=== PATIENT | male | born 1960 | race African-American/Black ===

== ENCOUNTER → 2020-06-08 | Outpatient (CLI) | payer SELFPAY ==
[~2020-06-08] MED LIST: NAPR-1071 PO; RT-ALBUTEROL SULF 2.5 MG/3 ML PRE-MIX VIAL INH ONE
== END ==
LOC: RT 15:18
PROVIDERS: ATTEND Nurse Practitioner Family
DX: J45.909 Unspecified asthma, uncomplicated (principal); F17.200 Nicotine dependence, unspecified, uncomplicated
CPT/HCPCS: 94060; 94726; 94729

== ENCOUNTER 2020-08-09 17:59 | Emergency (ER) | payer SELFPAY ==
[~2020-08-09] VITALS: Ht 162 cm; Wt 71.0 kg
[~2020-08-09 17:59] MED LIST changes: -RT-ALBUTEROL SULF 2.5 MG/3 ML PRE-MIX VIAL INH ONE
--- NOTE | 2020-08-09 18:05 | ED General ---
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--VERY HOT AND HUMID TODAY HAD SYNCOPAL EPISODE--BRIEF, WITNESSED BY CO-WORKERS NO INJURY PT WAS AWAKE, ALERT, LETHARGIC WHEN EMS ARRIVAL AT SCENE, AND PROFUSELY DIAPHORETIC PT STATES HE STARTED GETTING DIZZY AND SAT DOWN BEFORE HE PASSED OUT, DID NOT FALL OR INJURE HIMSELF IN ANY WAY HAS BEEN EATING AND DRINKING TODAY LAST VOID WAS A COUPLE OF HOURS AGO NO SYMPTOMS NOW, EXCEPT SOMEWHAT LETHARGIC NO CHEST PAIN NO PALPITATIONS NO SHORTNESS OF BREATH NO HEADACHE NO VISION CHANGES NO GI SYMPTOMS NO INCONTINENCE NO SEIZURE ACTIVITY NO HISTORY OF SIMILAR PT IS DIABETIC--ACCUCHECK 150 BY EMS VITALS ESSENTIALLY NORMAL FOR EMS NO FEVER OR RECENT ILLNESS PT HAD JOSELITO AND JOSELITO COVID-19 VACCINE PCP: SHANKAR Allergies and Home Medications Allergies Coded Allergies: No Known Drug Allergies (Unverified , 10/19/15) Home Medications Naproxen 500 Mg Tablet, 500 MG PO BID Prescribed by: APARNA HAWK on 10/19/15 5003 Patient Home Medication List Home Medication List Reviewed: Yes Review of Systems Review of Systems Constitutional: see HPI, diaphoresis, dizziness EENTM: no symptoms reported Respiratory: no symptoms reported Cardiovascular: No chest pain, No edema, No palpitations; syncope; No vascular heart diseas Gastrointestinal: no symptoms reported; No abdominal pain, No diarrhea, No nausea, No vomiting Genitourinary: no symptoms reported; No decreased output Musculoskeletal: no symptoms reported Skin: no symptoms reported Psychiatric/Neurological: See HPI; Denies Headache, Denies Numbness, Denies Paresthesia, Denies Seizure, Denies Tingling, Denies Weakness Hematologic/Lymphatic: No Symptoms Reported Immunological/Allergic: no symptoms reported Past Acsnuty-Lhfnel-Dywenk Hx Past Med/Social Hx: Reviewed and Corrections made Patient Social History Alcohol Use: Past History Drug of Choice: THC Smoking Status: Current Everyday Smoker (1 PPD) Type Used: Cigarettes Recent Hopitalizations: No Substance type: Marijuana Past Medical History Surgeries: Yes (BILATERAL ACHILLES TENDON REPAIRS) Orthopedic Respiratory: No Cardiac: Yes Hypertension Neurological: No Genitourinary: No Gastrointestinal: No Musculoskeletal: Yes (BILATERAL ACHILLES TENDON REPAIRS) Endocrine: Yes (ORAL MEDICATION) Diabetes, Non-Insulin dep HEENT: No Cancer: No Psychosocial: No Integumentary: No Blood Disorders: No Physical Exam Vital Signs Vital Signs - First Documented 08/09/20 18:00 Temp 37.0 Pulse 89 Resp 18 B/P (MAP) 120/84 (96) Pulse Ox 99 Capillary Refill : Height, Weight, BMI Height: 5'6" Weight: 170lbs. oz. 77.311690om; BMI Method:Stated General Appearance: No Apparent Distress, WD/WN, Other (MILDLY LETHARGIC) HEENT: PERRL/EOMI Neck: Normal Inspection Respiratory: Normal Breath Sounds, No Accessory Muscle Use, No Respiratory Distress Cardiovascular: Regular Rate, Rhythm, No Edema, No JVD, No Murmur, Normal Peripheral Pulses Gastrointestinal: Normal Bowel Sounds, No Organomegaly, No Pulsatile Mass, Non Tender, Soft Extremity: Normal Inspection Neurologic/Psychiatric: Alert, Oriented x3, No Motor/Sensory Deficits, Normal Mood/Affect, product finisher II-XII Norm as Tested Skin: Normal Color (PT IS BLACK), Cool, Damp, Other (CLOTHING SATURATED WITH SWEAT) Progress/Results/Core Measures Suspected Sepsis SIRS Temperature: Pulse: Respiratory Rate: Laboratory Tests 08/09/20 18:04: White Blood Count 9.9 Blood Pressure / Mean: Laboratory Tests 08/09/20 18:04: Creatinine 0.97, Platelet Count 277, Total Bilirubin 0.4 Results/Orders Lab Results Laboratory Tests Test 08/09/20 18:04 08/09/20 18:15 Range/Units White Blood Count 9.9 4.3-11.0 10^3/uL Red Blood Count 4.59 4.30-5.52 10^6/uL Hemoglobin 14.4 13.3-17.7 g/dL Hematocrit 43 40-54 % Mean Corpuscular Volume 95 80-99 fL Mean Corpuscular Hemoglobin 31 25-34 pg Mean Corpuscular Hemoglobin Concent 33 32-36 g/dL Red Cell Distribution Width 13.7 10.0-14.5 % Platelet Count 277 130-400 10^3/uL Mean Platelet Volume 9.2 9.0-12.2 fL Immature Granulocyte % (Auto) 1 % Neutrophils (%) (Auto) 66 42-75 % Lymphocytes (%) (Auto) 22 12-44 % Monocytes (%) (Auto) 8 0-12 % Eosinophils (%) (Auto) 3 0-10 % Basophils (%) (Auto) 0 0-10 % Neutrophils # (Auto) 6.6 1.8-7.8 10^3/uL Lymphocytes # (Auto) 2.2 1.0-4.0 10^3/uL Monocytes # (Auto) 0.7 0.0-1.0 10^3/uL Eosinophils # (Auto) 0.3 0.0-0.3 10^3/uL Basophils # (Auto) 0.0 0.0-0.1 10^3/uL Immature Granulocyte # (Auto) 0.1 0.0-0.1 10^3/uL Sodium Level 144 135-145 MMOL/L Potassium Level 3.4 L 3.6-5.0 MMOL/L Chloride Level 108 H 98-107 MMOL/L Carbon Dioxide Level 22 21-32 MMOL/L Anion Gap 14 5-14 MMOL/L Creatinine 0.97 0.60-1.30 MG/DL Estimat Glomerular Filtration Rate > 60 Glucose Level 126 H 70-105 MG/DL Calcium Level 9.0 8.5-10.1 MG/DL Corrected Calcium 9.2 8.5-10.1 MG/DL Total Bilirubin 0.4 0.1-1.0 MG/DL Alkaline Phosphatase 77 40-136 U/L Total Protein 6.9 6.4-8.2 GM/DL Albumin 3.7 3.2-4.5 GM/DL Glucometer 142 H 70-110 MG/DL My Orders Orders - JEREMIAH MCFADDEN DO Accucheck Stat ONCE (08/09/20 18:02) Ed Iv/Invasive Line Start (08/09/20 18:02) Ekg Tracing (08/09/20 18:02) Monitor-Rhythm Ecg Trace Only (08/09/20 18:02) Alcohol (08/09/20 18:02) Cbc With Automated Diff (08/09/20 18:02) Comprehensive Metabolic Panel (08/09/20 18:02) Creatine Kinase (08/09/20 18:02) Creatine Kinase Mb (08/09/20 18:02) Drug Screen Stat (Urine) (08/09/20 18:02) Magnesium (08/09/20 18:02) Ua Culture If Indicated (08/09/20 18:02) Myoglobin Serum (08/09/20 18:02) Troponin I (08/09/20 18:02) Ed Iv/Invasive Line Start (08/09/20 18:02) Lactated Ringers (Lr 1000 Ml Iv Solution (08/09/20 18:15) Vital Signs/I&O 08/09/20 18:00 Temp 37.0 Pulse 89 Resp 18 B/P (MAP) 120/84 (96) Pulse Ox 99 Capillary Refill : Progress Note : Progress Note GIVEN IV FLUIDS 1824--PT SITTING UP, STATES HE FEELS FINE AND IS ANXIOUS TO GO. ADVISED HIM THAT WE DO NOT HAVE ANY TEST RESULTS BACK, AND HE STATES HE DOESN'T CARE, AND THAT HE IS READY TO GO HOME NOW. PT DOES NOT APPEAR ANGRY OR UPSET, JUST STATES HE IS FINE AND WANTS TO GO HOME. PT ADVISED OF RISKS/BENEFITS. AMA PAPERS SIGNED PT ALERT, AND WALKS QUICKLY OUT OF ER WITHOUT ANY DIFFICULTY ECG Initial ECG Impression Date: Aug 09, 2020 Initial ECG Impression Time: 18:09 Initial ECG Rate: 88 Initial ECG Rhythm: Normal Sinus Departure Impression Primary Impression: Left against medical advice Disposition: 07 AGAINST MEDICAL ADVICE Condition: Against Medical Advice Departure-Patient Inst. Referrals: NO,LOCAL PHYSICIAN (PCP/Family) Primary Care Physician JEREMIAH MCFADDEN DO Aug 09, 2020 18:05
[2020-08-09] MEDS ORDERED: LACTATED RINGERS 1,000 ML IV ONE (18:15)
[2020-08-09 18:16] LABS: BASOPHILS % (AUTO) 0 % (0-10); EOSINOPHILS # (AUTO) 0.3 10^3/uL (0.0-0.3); EOSINOPHILS % (AUTO) 3 % (0-10); HEMATOCRIT 43 % (40-54); HEMOGLOBIN 14.4 g/dL (13.3-17.7); LYMPHOCYTES # (AUTO) 2.2 10^3/uL (1.0-4.0); LYMPHOCYTES % (AUTO) 22 % (12-44); MEAN CORPUSCULAR HEMOGLOBIN 31 pg (25-34); MEAN CORPUSCULAR HGB CONC 33 g/dL (32-36); MEAN CORPUSCULAR VOLUME 95 fL (80-99); MEAN PLATELET VOLUME 9.2 fL (9.0-12.2); MONOCYTES # (AUTO) 0.7 10^3/uL (0.0-1.0); MONOCYTES % (AUTO) 8 % (0-12); NEUTROPHILS # (AUTO) 6.6 10^3/uL (1.8-7.8); NEUTROPHILS % (AUTO) 66 % (42-75); PLATELET COUNT 277 10^3/uL (130-400); WHITE BLOOD COUNT 9.9 10^3/uL (4.3-11.0)
[2020-08-09 18:28] LABS: ALBUMIN 3.7 GM/DL (3.2-4.5); CHLORIDE 108 MMOL/L (98-107); POTASSIUM 3.4 MMOL/L (3.6-5.0); SODIUM 144 MMOL/L (135-145)
[2020-08-09 18:30] LABS: GLUCOSE 126 MG/DL (70-105); TOTAL PROTEIN 6.9 GM/DL (6.4-8.2)
[2020-08-09 18:31] LABS: CARBON DIOXIDE 22 MMOL/L (21-32)
[2020-08-09 18:32] LABS: BILIRUBIN,TOTAL 0.4 MG/DL (0.1-1.0)
[2020-08-09 18:34] LABS: ALKALINE PHOSPHATASE 77 U/L (40-136); CREATININE SERUM 0.97 MG/DL (0.60-1.30); GFR ESTIMATED > 60
[2020-08-09 18:35] VITALS: BP 120/84
[2020-08-09 18:35] LABS: BUN/CREATININE RATIO 10
[2020-08-09 18:37] LABS: ALANINE AMINOTRANSFERASE 26 U/L (0-55); CREATINE KINASE 137 U/L (30-200); MAGNESIUM 1.8 MG/DL (1.6-2.4)
[2020-08-09 18:44] LABS: CREATINE KINASE MB 1.7 NG/ML (<6.6)
== END 2020-08-09 18:37 | disposition left against medical advice (07) ==
LOC: EDUNIT# 17:59 → ER 18:01
DX: R55 Syncope and collapse (principal); I10 Essential (primary) hypertension; E11.9 Type 2 diabetes mellitus without complications; F17.210 Nicotine dependence, cigarettes, uncomplicated
CPT/HCPCS: 80053; 82550; 82553; 82947; 83735; 83874; 84484; 85025; 93005; 99284; G0480; 36415; 80320

== ENCOUNTER → 2021-07-11 | Outpatient (CLI) | payer SELFPAY ==
--- NOTE | 2021-07-11 10:26 | Diagnostic Imaging Report ---
PROCEDURE: MRI left joint lower extremity without contrast. TECHNIQUE: Multiplanar, multisequence non contrast-enhanced MRI of the left lower extremity was accomplished. INDICATION: Left knee pain. Fell 6 months ago. EXAMINATION:: Left knee MRI without contrast 07/11/2021 FINDINGS: The extensor mechanism appears intact. The ACL and PCL intact. The MCL appears thickened with surrounding edema suggesting a sprain. There is no discontinuity. The lateral collateral ligamentous complex is intact. There is a tear involving the posterior horn of the medial meniscus which extends to the tibial surface. There is a heterogeneous multidirectional degenerative type tear involving the entire lateral meniscus. There is mild lateral extrusion of the meniscal body. There is severe loss of cartilage in the lateral joint compartment with moderate to severe loss of cartilage in the medial joint space. Patellofemoral cartilage appears maintained. There is a moderate joint effusion. There is a small septated Rodriguez cyst with adjacent edema consistent with recent leakage. There is no acute osseous abnormality. Subchondral cystic changes noted throughout the posterior lateral femoral condyle. IMPRESSION: 1. Tears of the medial and lateral menisci. 2. Findings consistent with an MCL sprain with remaining ligaments and tendons unremarkable. 3. Medial and lateral joint compartment degenerative findings. 4. Leaking Rodriguez's cyst. Dictated by: Dictated on workstation # [id number]
== END ==
LOC: RAD 08:45
PROVIDERS: ATTEND Physician Assistant
DX: S83.242A Other tear of medial meniscus, current injury, left knee, initial encounter (principal); S83.282A Other tear of lateral meniscus, current injury, left knee, initial encounter; M17.12 Unilateral primary osteoarthritis, left knee; M71.22 Synovial cyst of popliteal space [Baker], left knee; X58.XXXA Exposure to other specified factors, initial encounter
CPT/HCPCS: 73721

== ENCOUNTER 2022-01-14 10:00 | Outpatient (RCR) | payer MEDICAID, OTHER | END 2022-01-16 | disposition home or self-care (01) | LOC: ONC 10:00 | PROVIDERS: ATTEND Radiology Radiation Oncology | DX: C61 Malignant neoplasm of prostate (principal) | CPT/HCPCS: 99205 ==

== ENCOUNTER → 2022-02-20 | Outpatient (CLI) | payer MEDICAID, OTHER ==
[~2022-02-20] VITALS: Ht 162 cm; Wt 69.0 kg
[~2022-02-20] MED LIST changes: +CATHETER FLUSH 10 ML SYR IVP PRN
[2022-02-20 09:31] VITALS: BP 128/89
--- NOTE | 2022-02-20 11:27 | Cardiology Stress Test Report ---
Stress Test Report Date of Procedure/Referring: Date of Procedure: Feb 20, 2022 PCP Manohar Briceno MD Admitting Physician Admitting Physician: Attending Physician: Adrienne Alvarado MD Baseline Heart Rate: 93 Baseline Blood Pressure: Blood Pressure Systolic: 128 Blood Pressure Diastolic: 89 Vital Signs Date Time Temp Pulse Resp B/P (MAP) Pulse Ox O2 Delivery O2 Flow Rate FiO2 02/20/22 09:31 103 17 128/89 (102) 98 Room Air Baseline Vital Signs Vital Signs Date Time Temp Pulse Resp B/P (MAP) Pulse Ox O2 Delivery O2 Flow Rate FiO2 02/20/22 09:31 103 17 128/89 (102) 98 Room Air Baseline EKG: Baseline EKG: NSR Summary: After explaining the procedure and details to the patient, he signed the consent and was brought to the stress nuclear laboratory. Patient exercised on standard Lazaro protocol, EKG, heart rate and blood pressure were monitored continuously, resting and stress doses of radio tracer were injected, imaging was acquired and reviewed in the short axis, horizontal long axis and vertical long axis views Patient was able to exercise for a total of 4.30 minutes on Lazaro protocol, METs 6.4 Maximum heart rate 135 Maximum blood pressure 167/97 Stress EKG, Minimal nondiagnostic changes Recovery EKG, Return to baseline TID: 1.04 SSS: 3 SDS: 1 EF: 55 Conclusion: 1. Fair exercise tolerance for 4 minutes and 30 seconds on standard Lazaro protocol, 6.4 METS achieving 85% of maximum expected heart rate 2. Appropriate heart rate and blood pressure response to exercise return to baseline during recovery 3. Nondiagnostic EKG changes with exercise return to baseline during recovery 4. Typical male pattern with no significant ischemia or infarction on SPECT images 5. Normal left ventricular size, ejection fraction 55% Copy Copies To 1: [facility] [place]VAR[place] MD Feb 20, 2022 11:27
== END ==
LOC: CARD 08:30
PROVIDERS: ATTEND Internal Medicine Cardiovascular Disease
DX: I10 Essential (primary) hypertension (principal); I25.10 Atherosclerotic heart disease of native coronary artery without angina pectoris
CPT/HCPCS: 78452; 93017; A9502

== ENCOUNTER 2022-03-20 05:29 | Outpatient (CLI) | payer MEDICAID ==
[~2022-03-20] VITALS: Ht 162.6 cm; Wt 75.4 kg
[~2022-03-20 05:29] MED LIST changes: -CATHETER FLUSH 10 ML SYR IVP PRN
[2022-03-21] MEDS ORDERED: AMLO-251 PO (13:25)
[2022-03-21] MEDS ORDERED: LISI10TA25 PO (13:25)
[2022-03-21] MEDS ORDERED: TMSL.4C PO (13:25)
[2022-03-21] MEDS ORDERED: LAMISIL (13:25)
[2022-03-21] MEDS ORDERED: ATOR10TA66 PO (13:25)
[2022-03-21] MEDS ORDERED: PANT20TA18 PO (13:25)
[2022-03-21] MEDS ORDERED: ALBU2.5V4 INH (13:25)
[2022-03-21] MEDS ORDERED: CETI10TA17 PO (13:25)
[2022-03-21] MEDS ORDERED: METF-397 PO (13:25)
[2022-03-21] MEDS ORDERED: RT-ALBUINH INH (13:25)
[2022-03-21] MEDS ORDERED: BUDE10.2 IH (13:25)
[2022-03-21] MEDS ORDERED: MONT-40 PO (13:25)
[2022-03-21] MEDS ORDERED: GUAI600T43 PO (13:42)
[2022-03-21] MEDS ORDERED: FLUT1BLS3 IH (13:42)
== END 2022-03-21 13:48 | disposition home or self-care (01) ==
LOC: PREOP 05:29
PROVIDERS: ATTEND Specialist
DX: Z01.818 Encounter for other preprocedural examination (principal)

== ENCOUNTER 2022-03-27 10:08 | Day surgery (SDC) | payer MEDICAID ==
[2022-03-27] VITALS (10 sets, daily range): BP systolic 86–133; BP diastolic 67–101
[~2022-03-27] VITALS: Ht 162.6 cm; Wt 75.4 kg
[~2022-03-27 10:08] MED LIST changes: +ALBU2.5V4 INH; +AMLO-251 PO; +ATOR10TA66 PO; +BUDE10.2 IH; +CETI10TA17 PO; +FLUT1BLS3 IH; +GUAI600T43 PO; +LAMISIL; +LISI10TA25 PO; +METF-397 PO; +MONT-40 PO; +PANT20TA18 PO; +RT-ALBUINH INH; +TMSL.4C PO
--- NOTE | 2022-03-27 10:33 | Progress Note-Pre Operative ---
Pre-Operative Progress Note Date of Available H&P: Mar 18, 2022 Date H&P Reviewed: Mar 27, 2022 Time H&P Reviewed: 10:32 History & Physical: H&P Reviewed, Patient Examed, No changes noted Changes from last HP None Pre-Operative Diagnosis: Prostate cancer cT1c, PSA 9.76, [place] 7 (4+3) Babs BOOKER MD Mar 27, 2022 10:33
--- NOTE | 2022-03-27 10:38 | Discharge Inst-Simple/Standard ---
Discharge Inst-Standard Reconcile Patient Problems Problems Reviewed?: Yes Discharge Medications New, Converted or Re-Newed RX: Other (Patient has antibiotics at home. Take as directed by cancer center.) Patient Instructions/Follow Up Plan of Care/Instructions/FU: 1)Treatment planning cat scan at [facility] cancer [facility] 04/15/22 at 10:00 a.m. Drink 1/2 bottle of oral contrast at 9:30 a.m. (patient has been given this along with verbal/written instructions) Activity as Tolerated: Yes Discharge Diet: No Restrictions Babs BOOKER MD Mar 27, 2022 10:38
[2022-03-27] MEDS ORDERED: MIDAZOLAM 2 MG/2 ML (VERSED) VIAL ONE (10:49)
[2022-03-27] MEDS ORDERED: fentaNYL INJ 100 MCG/2 ML AMP ONE (10:49)
[2022-03-27] MEDS ORDERED: ONDANSETRON 4 MG/2 ML (SDV) Z0FRAN ONE (10:49)
[2022-03-27] MEDS ORDERED: LIDOCAINE PF 2% 5 ML (XYLOCAINE) VIAL ONE (10:49)
[2022-03-27] MEDS ORDERED: proPOfol 200 MG/20 ML (DIPRIVAN) VIAL IV ONE (10:49)
[2022-03-27] MEDS ORDERED: SEVOFLURANE (ULTANE) 15 ML INHAL SOLN ONE (10:49)
[2022-03-27] MEDS ORDERED: LACTATED RINGERS 1,000 ML IV PRN (11:00)
--- NOTE | 2022-03-27 11:46 | Anesthesia-General Post-Op ---
General Patient Condition Mental Status/LOC: Same as Preop Cardiovascular: Satisfactory Nausea/Vomiting: Absent Respiratory: Satisfactory Pain: Controlled Complications: Absent Post Op Complications Complications None Follow Up Care/Instructions Patient Instructions None needed. Anesthesia/Patient Condition Patient Condition Patient is doing well, no complaints, stable vital signs, no apparent adverse anesthesia problems. No complications reported per nursing. EMANI REAGAN CRNA Mar 27, 2022 11:46
--- NOTE | 2022-03-27 11:54 | Progress Note-Post Operative ---
Post-Operative Progess Note Surgeon (s)/Pure Pak Machine Operator (s) Surgeon Babs BOOKER MD Pure Pak Machine Operator: N/A Pre-Operative Diagnosis Prostate cancer cT1c, PSA 9.76, [place] 7 (4+3) Post-Operative Diagnosis Same as pre op Procedure & Operative Findings Date of Procedure 03/27/22 Procedure Performed/Findings (1) Placement of fiducial gold seed markers under ultrasound guidance (2) Injection of biodegradable hydrogel prostate/rectal spacer utilizing the [employer] Yelena system Anesthesia Type General Estimated Blood Loss Estimated blood loss (mL): None Specimens/Packing Specimens Removed None Packing: None Babs BOOKER MD Mar 27, 2022 11:54
[2022-03-27] MEDS ORDERED: morphine INJ 10 MG/ML 1ML (SYR OR VIAL) IVP ONE (12:00)
[2022-03-27] MEDS ORDERED: fentaNYL INJ 100 MCG/2 ML AMP IVP ONE (12:00)
[2022-03-27] MEDS ORDERED: ONDANSETRON 4 MG/2 ML (SDV) Z0FRAN IVP PRN (12:00)
[2022-03-27] MEDS ORDERED: MEPERIDINE (DEMEROL) INJ 50 MG/ML IVP ONE (12:00)
== END 2022-03-27 13:25 | disposition home or self-care (01) ==
LOC: SDC 10:08
PROVIDERS: ATTEND Specialist
DX: C61 Malignant neoplasm of prostate (principal); J44.9 Chronic obstructive pulmonary disease, unspecified; E11.9 Type 2 diabetes mellitus without complications; I10 Essential (primary) hypertension; F17.210 Nicotine dependence, cigarettes, uncomplicated; B19.20 Unspecified viral hepatitis C without hepatic coma; Z79.84 Long term (current) use of oral hypoglycemic drugs
CPT/HCPCS: 55874; 55876; 82947; 87081; C1889

== ENCOUNTER 2022-04-15 10:11 | Outpatient (RCR) | payer MEDICAID, OTHER | END 2022-04-16 | disposition home or self-care (01) | LOC: ONC 10:11 | PROVIDERS: ATTEND Radiology Radiation Oncology | DX: C61 Malignant neoplasm of prostate (principal); I65.29 Occlusion and stenosis of unspecified carotid artery; I10 Essential (primary) hypertension; R55 Syncope and collapse; E11.9 Type 2 diabetes mellitus without complications | CPT/HCPCS: 77300; 77301; 77334; 77338 ==

== ENCOUNTER → 2022-04-25 | Outpatient (CLI) | payer MEDICAID, OTHER | LOC: CARD 09:08 | PROVIDERS: ATTEND Internal Medicine Cardiovascular Disease | DX: I10 Essential (primary) hypertension (principal); I25.10 Atherosclerotic heart disease of native coronary artery without angina pectoris | CPT/HCPCS: 93306 ==

== ENCOUNTER 2022-05-08 20:48 | Outpatient (CLI) | payer MEDICAID, OTHER | END 2022-05-09 05:50 | disposition home or self-care (01) | LOC: SLEEP 20:48 | PROVIDERS: ATTEND Nurse Practitioner Family | DX: G47.34 Idiopathic sleep related nonobstructive alveolar hypoventilation (principal); G47.9 Sleep disorder, unspecified; J44.9 Chronic obstructive pulmonary disease, unspecified; R06.83 Snoring | CPT/HCPCS: 95811 ==

== ENCOUNTER → 2022-05-17 | Outpatient (RCR) | payer MEDICAID, OTHER | END | disposition home or self-care (01) | LOC: ONC 04-17 09:02 | PROVIDERS: ATTEND Radiology Radiation Oncology | DX: Z51.0 Encounter for antineoplastic radiation therapy (principal); I65.29 Occlusion and stenosis of unspecified carotid artery; I10 Essential (primary) hypertension; R55 Syncope and collapse; E11.9 Type 2 diabetes mellitus without complications; J44.9 Chronic obstructive pulmonary disease, unspecified | CPT/HCPCS: 77300; 77336; 77385 ==

== ENCOUNTER 2022-06-14 09:24 | Outpatient (RCR) | payer MEDICAID, OTHER | END 2022-06-16 | disposition home or self-care (01) | LOC: ONC 09:24 | PROVIDERS: ATTEND Radiology Radiation Oncology | DX: Z51.0 Encounter for antineoplastic radiation therapy (principal); I65.29 Occlusion and stenosis of unspecified carotid artery; I10 Essential (primary) hypertension; R55 Syncope and collapse; E11.9 Type 2 diabetes mellitus without complications; J44.9 Chronic obstructive pulmonary disease, unspecified | CPT/HCPCS: 77336; 77385 ==

== ENCOUNTER 2022-06-20 09:41 | Outpatient (RCR) | payer MEDICAID, OTHER | END 2022-07-17 | disposition home or self-care (01) | LOC: ONC 09:41 | PROVIDERS: ATTEND Radiology Radiation Oncology | DX: Z51.0 Encounter for antineoplastic radiation therapy (principal); I65.29 Occlusion and stenosis of unspecified carotid artery; I10 Essential (primary) hypertension; R55 Syncope and collapse; E11.9 Type 2 diabetes mellitus without complications; J44.9 Chronic obstructive pulmonary disease, unspecified | CPT/HCPCS: 77336; 77385 ==

== ENCOUNTER → 2022-07-18 | Outpatient (CLI) | payer MEDICAID, OTHER ==
[~2022-07-18] MED LIST changes: +RT-ALBUTEROL SULF 2.5 MG/3 ML PRE-MIX VIAL INH ONE
== END ==
LOC: RT 10:36
PROVIDERS: ATTEND Family Medicine
DX: J44.9 Chronic obstructive pulmonary disease, unspecified (principal)
CPT/HCPCS: 94060; 94729

== ENCOUNTER 2022-08-08 09:04 | Outpatient (RCR) | payer MEDICAID, OTHER ==
[~2022-08-08 09:04] MED LIST changes: -RT-ALBUTEROL SULF 2.5 MG/3 ML PRE-MIX VIAL INH ONE
== END 2022-08-16 | disposition home or self-care (01) ==
LOC: ONC 09:04
PROVIDERS: ATTEND Radiology Radiation Oncology
DX: C61 Malignant neoplasm of prostate (principal)
CPT/HCPCS: 84153; G0463; 36415; 99213